=== PATIENT | male | born 1960 | race Caucasian/White ===

== ENCOUNTER 2020-09-16 17:19 | Emergency (ER) | payer MEDICARE, MEDICAID ==
[~2020-09-16] VITALS: Ht 177.8 cm; Wt 124.3 kg
[2020-09-16] MEDS ORDERED: AZIT-12 PO (17:38)
[2020-09-16] MEDS ORDERED: METF500T13 PO (17:38)
[2020-09-16] MEDS ORDERED: FLOV250A2 INH (17:38)
[2020-09-16] MEDS ORDERED: RISP-7 PO (17:38)
[2020-09-16] MEDS ORDERED: CYCL-707 PO (17:38)
[2020-09-16] MEDS ORDERED: INCR1INH INH (17:38)
[2020-09-16] MEDS ORDERED: DICY1CAP8 PO (17:38)
[2020-09-16] MEDS ORDERED: LISI10TA22 PO (17:38)
[2020-09-16] MEDS ORDERED: OMEP40CA97 PO (17:38)
[2020-09-16] MEDS ORDERED: HYDR-4517 PO (17:38)
[2020-09-16] MEDS ORDERED: LEXA1TAB PO (17:38)
[2020-09-16] MEDS ORDERED: LOPE1CAP5 PO (17:38)
[2020-09-16] MEDS ORDERED: GABA-1171 PO (17:38)
[2020-09-16] MEDS ORDERED: ONDA-83 PO (17:38)
[2020-09-16] MEDS ORDERED: SUCR1TA PO (17:38)
[2020-09-16 18:27] LABS: BASO # 0.1 10^3/uL (0.0-0.2); BASO % 0.9 % (0.0-1.0); EOS # 0.2 10^3/uL (0.0-0.5); HEMOGLOBIN 15.3 g/dl (13.5-17.5); LYMPH # 2.3 10^3/uL (1.5-5.0); LYMPH % 29.9 % (24.0-44.0); MEAN CORPUSCULAR HEMOGLOBIN 30.5 pg (27.0-33.0); MEAN CORPUSCULAR HGB CONC 34.8 g/dl (32.0-36.5); MEAN CORPUSCULAR VOLUME 87.8 fl (80.0-96.0); MONO # 0.4 10^3/uL (0.0-0.8); MONO % 5.2 % (2.0-8.0); NEUTROPHILS # 4.7 10^3/uL (1.5-8.5); NEUTROPHILS % 61.5 % (36.0-66.0); PLATELET COUNT, AUTOMATED 225 10^3/uL (150-450); RED BLOOD COUNT 5.01 10^6/uL (4.30-6.10); WHITE BLOOD COUNT 7.7 10^3/uL (4.0-10.0)
[2020-09-16 18:37] LABS: APPEARANCE, URINE CLEAR (CLEAR); BACTERIA, URINE AUTO NEGATIVE (NEGATIVE); BILIRUBIN, URINE AUTO NEGATIVE (NEGATIVE); BLOOD, URINE BLOOD 1+ (NEGATIVE); COLOR, URINE STRAW (YELLOW); GLUCOSE, URINE (UA) AUTO 3+ mg/dL (NEGATIVE); KETONE, URINE AUTO NEGATIVE (NEGATIVE); LEUKOCYTE ESTERASE, URINE AUTO NEGATIVE (NEGATIVE); MUCUS, URINE SMALL (NEGATIVE); NITRITE, URINE AUTO NEGATIVE (NEGATIVE); PROTEIN, URINE AUTO NEGATIVE (NEGATIVE); RBC, URINE AUTO 1 /HPF (0-3); SQUAMOUS EPITHELIAL CELL UR AU 0 /HPF (0-6); UROBILINOGEN, URINE AUTO 0.2 mg/dL (0.0-2.0); WBC, URINE AUTO 0 /HPF (0-3)
[2020-09-16 19:05] LABS: ALBUMIN 3.7 GM/DL (3.2-5.2); ALT/SGPT 70 U/L (12-78); BILIRUBIN,DIRECT < 0.1 MG/DL (0.0-0.2); BILIRUBIN,TOTAL 0.3 MG/DL (0.2-1.0); BLOOD UREA NITROGEN 12 MG/DL (7-18); CALCIUM LEVEL 9.2 MG/DL (8.5-10.1); CARBON DIOXIDE LEVEL 27 MEQ/L (21-32); CHLORIDE LEVEL 98 MEQ/L (98-107); GLOMERULAR FILTRATION RATE > 60.0 (>56); GLUCOSE, FASTING 479 MG/DL (70-100); POTASSIUM SERUM 6.5 MEQ/L (3.5-5.1); SODIUM LEVEL 130 MEQ/L (136-145); TOTAL PROTEIN 7.7 GM/DL (6.4-8.2)
[2020-09-16] MEDS ORDERED: NS 1,000 ML IV SCH (19:15)
[2020-09-16] MEDS ORDERED: HumuLIN R (REGULAR) INSULIN (NovoLIN R) **100U/ML** PER UNIT IV ONE (19:15)
[2020-09-16 22:49] VITALS: BP 139/79
== END 2020-09-16 23:00 | disposition home or self-care (01) ==
LOC: M ED 17:19
DX: R73.9 Hyperglycemia, unspecified (principal); R19.7 Diarrhea, unspecified; I10 Essential (primary) hypertension; I48.91 Unspecified atrial fibrillation; E78.9 Disorder of lipoprotein metabolism, unspecified; J44.9 Chronic obstructive pulmonary disease, unspecified; M54.9 Dorsalgia, unspecified; F17.200 Nicotine dependence, unspecified, uncomplicated; Z88.5 Allergy status to narcotic agent; Z79.899 Other long term (current) drug therapy; Z79.2 Long term (current) use of antibiotics; Z79.84 Long term (current) use of oral hypoglycemic drugs; Z79.51 Long term (current) use of inhaled steroids

== ENCOUNTER → 2020-09-24 | Outpatient (REF) | payer MEDICARE, MEDICAID ==
[~2020-09-24] MED LIST: AZIT-12 PO; CYCL-707 PO; DICY1CAP8 PO; FLOV250A2 INH; GABA-1171 PO; HYDR-4517 PO; INCR1INH INH; LEXA1TAB PO; LISI10TA22 PO; LOPE1CAP5 PO; METF500T13 PO; OMEP40CA97 PO; ONDA-83 PO; RISP-7 PO; SUCR1TA PO
[2020-09-24 15:55] LABS: CLOSTRIDIUM DIFFICILE PCR NEGATIVE (NEGATIVE)
== END ==
LOC: M LAB REF 14:24
PROVIDERS: ATTEND Pediatrics
DX: R19.7 Diarrhea, unspecified (principal)

== ENCOUNTER → 2020-10-01 | Outpatient (REF) | payer MEDICARE, MEDICAID ==
[2020-10-01 17:58] LABS: MALB URINE SIEMENS 85.6 MG/L; MAU/CREAT RATIO 39.6 MCG/MG (0.0-30.0)
== END ==
LOC: M LAB REF 16:10
PROVIDERS: ATTEND Family Medicine Addiction Medicine
DX: E11.69 Type 2 diabetes mellitus with other specified complication (principal)

== ENCOUNTER → 2021-01-27 | Outpatient (CLI) | payer MEDICARE, MEDICAID ==
[~2021-01-27] MED LIST changes: +OMEP40CA4 PO; -OMEP40CA97 PO
== END ==
LOC: M RAD 15:10
PROVIDERS: ATTEND Physician Assistant
DX: R91.8 Other nonspecific abnormal finding of lung field (principal)

== ENCOUNTER → 2021-02-18 | Outpatient (CLI) | payer MEDICARE, MEDICAID ==
[2021-02-18 15:47] LABS: BLOOD UREA NITROGEN 10 MG/DL (7-18); CREATININE FOR GFR 0.74 MG/DL (0.70-1.30); GLOMERULAR FILTRATION RATE > 60.0 (>56)
== END ==
LOC: M LAB 14:04
PROVIDERS: ATTEND Physician Assistant
DX: R93.429 Abnormal radiologic findings on diagnostic imaging of unspecified kidney (principal)